=== PATIENT | male | born 1975 | race Caucasian/White ===

== ENCOUNTER 2023-03-03 10:46 | Emergency (ER) | payer OTHER, MEDICAID, SELFPAY ==
[2023-03-03 10:49] VITALS: BP 109/77; PULSE 91; RESP 20; TEMP 36.6; O2SAT 98; BMI 23.9
--- NOTE | 2023-03-03 11:19 | ED.GENADULT ---
HPI - General Adult General Chief complaint: Skin/Abscess/Foreign Body Stated complaint: rash after a surgery Time Seen by Provider: 03/03/23 10:55 Source: patient Mode of arrival: ambulatory Limitations: no limitations History of Present Illness HPI narrative: Patient is a 47-year-old male coming in today complaining of a pruritus and full body skin rashes that begun postoperatively after an abdominal wall hernia repair. Patient states that surgery was done at the beginning of January and he has been having trouble since then. At the beginning of February he was diagnosis with a possible very small abscess around the surgical sites and he was placed on Augmentin. He states that he is not having worsening abdominal pain but he has constant pain that has not improved at all since surgery almost 2 months ago. What he is most concerned about is the fact that he breaks out into a pruritic rash all over his body that comes and goes and that nobody will take him seriously. He has been seen by multiple providers and has tried several doses of steroids including a Medrol Dosepak and prednisone as well as topical steroids which do not seem to help. He states that he when he is taking the steroid, the pruritus gets slightly better but does not go away. He presents to our ER today because he wants another opinion and further testing done as to why he has a pruritic rash. He denies other symptoms aside from what is mentioned. He is currently not taking any medications. Related Data Home Medications Medication Instructions Recorded Confirmed No Known Home Medications 03/03/23 03/03/23 Allergies Allergy/AdvReac Type Severity Reaction Status Date / Time ciprofloxacin [From Cipro] Allergy Verified 03/03/23 10:56 dermabond Allergy Rash Uncoded 03/03/23 10:56 Review of Systems Status of ROS: Reports: 10 or more systems reviewed and unremarkable except as noted in History and below [facility] Social History Smoking Status: Current every day smoker What tobacco products do you use: cigarettes Do you use any of these nicotine containing products: None Second hand tobacco smoke exposure: No How often do you have a drink containing alcohol: never How often do you have six or more drinks on one occasion: Never AUDIT-C Alcohol total score: 0 Non-prescribed substance use: denies use Exam Narrative: Exam Narrative: Well-nourished well-developed patient in no acute distress. Alert and oriented. Answers questions appropriately. Mood and affect are appropriate. Thoughts are goal oriented and rational. No tangential or magical thinking noted. Patient speaks in full sentences without needing to catch his breath. He is slightly disheveled, hair is dirty. HEENT: Normocephalic atraumatic. Pupils are equally round reactive to light. Extraocular muscles are intact. Conjunctivae are moist without any icterus noted. Moist mucous membranes. Posterior pharynx is normal. Neck is soft without any lymphadenopathy or thyromegaly. No masses are appreciated. Cardiovascular: Heart is regular rate and rhythm S1 and S2 are present without any murmurs. Lungs: Clear to auscultation bilaterally no wheezes rhonchi or rales are appreciated. Patient takes deep breaths without any discomfort. Abdomen: Soft and nontender nondistended with normal bowel sounds. Incisions have healed appropriately. No signs of infection noted. Extremities: Bilateral lower extremities are without edema. Skin: Well perfused without any obvious rashes. Patient has patches of skin irritation throughout the body. He has an area on the posterior wrist on the right side, and area of the antecubital fossa on the right side. He has a scattered macule here in there. The area is on the wrist and antecubital fossa have been scratched and there is broken skin present. His back has diffuse acne. I do not see any hives. He has another area of a scratch in irritated skin on the anterior abdomen that is a couple cm in length. Const: Vital Signs, click to edit/add: Vital Signs - 24 hr 03/03/23 10:49 Temperature 97.8 F Pulse Rate [Pulse Oximeter] 91 Respiratory Rate 20 Blood Pressure [Ri ght Upper Arm] 109/77 Pulse Oximetry 98 Oxygen Delivery Me thod Room Air Course Course Hospital Course: Discussed with the patient today that his next best step would be to see an senior production manager. He tells me that he had an abnormal CBC at the beginning of February is quite concerned the nothing was done about this. Therefore we did go ahead and decide to repeat his CBC at this time. CBC was entirely normal. Vital Signs Vital signs: Initial Vital Signs Temperature 97.8 F 03/03/23 10:49 Temperature Source Temporal Artery Scan 03/03/23 10:49 Pulse Rate 91 03/03/23 10:49 Respiratory Rate 20 03/03/23 10:49 Blood Pressure 109/77 03/03/23 10:49 Blood Pressure Mean 87 03/03/23 10:49 Blood Pressure Position Sitting 03/03/23 10:49 Pulse Oximetry 98 03/03/23 10:49 Oxygen Delivery Method Room Air 03/03/23 10:49 Vital Signs Temperature 97.8 F 03/03/23 10:49 Pulse Rate 91 03/03/23 10:49 Respiratory Rate 20 03/03/23 10:49 Blood Pressure 109/77 03/03/23 10:49 Pulse Oximetry 98 03/03/23 10:49 Oxygen Delivery Method Room Air 03/03/23 10:49 Temperature 97.8 F 03/03/23 10:49 Pulse Rate 91 03/03/23 10:49 Respiratory Rate 20 03/03/23 10:49 Blood Pressure 109/77 03/03/23 10:49 Pulse Oximetry 98 03/03/23 10:49 Oxygen Delivery Method Room Air 03/03/23 10:49 Medical Decision Making MDM Narrative Medical decision making narrative: Pruritus with rash. Recommended that patient follow-up with senior production manager. Lab Data Lab results reviewed: Yes I reviewed the patient's lab results Labs: Lab Results 03/03/23 Range/Units 11:23 WBC 4.84 (4.50-11.00) K/uL RBC 4.63 (4.30-5.90) m/uL Hgb 14.9 (13.5-17.5) gm/dL Hct 43.4 (37.0-53.0) % MCV 94 (80-100) fL MCH 32 (26-34) pg MCHC 34 (32-36) gm/dL RDW Coeff of Sarah 12.9 (11.5-15.5) % Plt Count 168 (140-440) K/uL Neut % (Auto) 56.2 (42.0-72.0) % Lymph % (Auto) 30.6 (20-44) % [place] % (Auto) 6.6 (0.0-11.0) % Eos % (Auto) 6.0 (0.0-7.0) % Baso % (Auto) 0.4 (0.0-3.0) % Neut # (Auto) 2.72 (1.7-7.0) K/uL Lymph # (Auto) 1.48 (0.90-2.90) K/uL [place] # (Auto) 0.30 (0.00-0.90) K/UL Eos # (Auto) 0.29 (0.00-0.50) K/uL Baso # (Auto) 0.02 (0.00-0.30) K/uL Discharge Plan Discharge Clinical Impression: Rash, Pruritus Patient Disposition: Home, Self-Care Condition: Stable Additional Instructions: Your blood counts today were entirely normal. Recommend that you follow-up with an senior production manager for next steps. Prescriptions: No Action No Known Home Medications Stand Alone Forms: [employer] Info Instructions
--- NOTE | 2023-03-03 11:20 | PC.NURSE ---
lab in room
[2023-03-03 11:31] LABS: Basophils Absolute Auto 0.02 K/uL (0.00-0.30); Basophils Percent Auto 0.4 % (0.0-3.0); Eosinophils Absolute Auto 0.29 K/uL (0.00-0.50); Hematocrit 43.4 % (37.0-53.0); Hemoglobin* 14.9 gm/dL (13.5-17.5); Immature Granulocytes Abs Auto 0.01 K/uL (0.00-0.30); Immature Granulocytes Pct Auto 0.2 %; Lymphocytes Absolute Auto 1.48 K/uL (0.90-2.90); Lymphocytes Percent Auto 30.6 % (20-44); Mean Corpuscular HGB Conc 34 gm/dL (32-36); Mean Corpuscular Hemoglobin 32 pg (26-34); Mean Corpuscular Volume 94 fL (80-100); Monocytes Percent Auto 6.6 % (0.0-11.0); Neutrophils Absolute Auto 2.72 K/uL (1.7-7.0); Neutrophils Percent Auto 56.2 % (42.0-72.0); Platelet Count* 168 K/uL (140-440); RDW Coefficient of Variation % 12.9 % (11.5-15.5); Red Blood Count 4.63 m/uL (4.30-5.90); White Blood Count* 4.84 K/uL (4.50-11.00)
[2023-03-03 11:33] LABS: Slide Review Reflex No
== END 2023-03-03 12:23 | disposition home or self-care (01) ==
PROVIDERS: Emergency Provider Family Medicine
DX: R21 Rash and other nonspecific skin eruption (principal); L29.9 Pruritus, unspecified
CPT/HCPCS: 36415; 85025; 99283; 99284